=== PATIENT | female | born 1990 | race Caucasian/White ===

== ENCOUNTER 2017-07-10 21:29 | Emergency (ER) | payer OTHER, MEDICAID ==
[2017-07-10] MEDS ORDERED: TETRACAINE HCL 0.5% OPH SOLN 2 ML OU ONE (22:55)
[2017-07-10] MEDS ORDERED: DIPH/PERTUSS(ACELL)/TETANUS VAC/PF 0.5 ML SYR (>=10YO) IM ONE (23:17)
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
[2017-07-11 00:20] VITALS: BP 111/67
== END 2017-07-10 23:49 | disposition home or self-care (01) ==
LOC: ER 21:29
DX: T26.02XA Burn of left eyelid and periocular area, initial encounter (principal); H57.12 Ocular pain, left eye; X10.2XXA Contact with fats and cooking oils, initial encounter; Y92.511 Restaurant or cafe as the place of occurrence of the external cause; Y99.0 Civilian activity done for income or pay; F17.200 Nicotine dependence, unspecified, uncomplicated; F12.10 Cannabis abuse, uncomplicated; R03.0 Elevated blood-pressure reading, without diagnosis of hypertension; Z23 Encounter for immunization
CPT/HCPCS: 90471; 90715; 99283

== ENCOUNTER 2017-11-05 14:17 | Emergency (ER) | payer OTHER, MEDICAID ==
[2017-11-05] MEDS ORDERED: HYDROCODONE/ACETAMINOPHEN 5-325 MG TABLET PO ONE (15:05)
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
[2017-11-05] MEDS ORDERED: LIDOCAINE 5% (700 MG) TRANSDERMAL ADH..PATCH TP ONE (16:05)
[2017-11-05] MEDS ORDERED: CEPHALEXIN 500 MG CAPSULE PO ONE (16:05)
[2017-11-05 16:35] VITALS: BP 119/69
== END 2017-11-05 16:38 | disposition home or self-care (01) ==
LOC: ER 14:17
DX: S00.512A Abrasion of oral cavity, initial encounter (principal); M54.9 Dorsalgia, unspecified; F17.200 Nicotine dependence, unspecified, uncomplicated; V89.2XXA Person injured in unspecified motor-vehicle accident, traffic, initial encounter; Z88.0 Allergy status to penicillin; Z90.49 Acquired absence of other specified parts of digestive tract; Z98.51 Tubal ligation status
CPT/HCPCS: 72070; 72110; 99284

== ENCOUNTER → 2017-11-10 | Outpatient (CLI) | payer MEDICAID ==
--- NOTE | 2017-11-10 14:02 | RADIOLOGY REPORT (SQ) ---
EXAM DESCRIPTION: NM BONE SCAN LIMITED COMPLETED DATE/TIME: 11/10/2017 1:53 pm REASON FOR STUDY: M48.54XA COLLAPSED VERTEBRA, NOT ELSEWHERE CLASSIFIED, THORACIC REGION, INI M48.54 XA COLLAPSED VERTEBRA, NEC, THORACIC REGION, INIT COMPARISON: Thoracic spine films 11/05/2017 RADIONUCLIDE AND DOSE: 21.2 millicuries Tc99m MDP. The route of agent administration: Intravenous. ADDITIONAL DRUGS AND DOSES: None. TECHNIQUE: Routine delayed images at 3 hours post radionuclide injection acquired of the bony skelet on including anterior and posterior whole-body projections and additional focused images as needed. LIMITATIONS: Injection infiltrated in the patient's IV, there are right axillary lymph nodes with HD P, a normal variant with extravasation of the agent FINDINGS: No abnormal increased uptake over the thoracic spine, sternum, ribs, or visualized lumbar spine. Prior films were reviewed, lower thoracic kyphosis is present with multilevel vertebral body endplate irregularity from Scheuermann's disease. IMPRESSION: NORMAL BONE SCAN. COMMENT: Quality measure 147: Current bone scan is compared with any available plain radiographs, p rior bone scans, and CT/MRI. TECHNICAL DOCUMENTATION: JOB ID: [id number] [email or web address]- All Rights Reserved Reading location - IP/workstation name: [email or web address]
== END ==
LOC: RAD 10:12
PROVIDERS: ATTEND Family Medicine
DX: M48.54XA Collapsed vertebra, not elsewhere classified, thoracic region, initial encounter for fracture (principal); M42.04 Juvenile osteochondrosis of spine, thoracic region
CPT/HCPCS: 78305; A9561